=== PATIENT | female | born 1995 | race Caucasian/White ===

== ENCOUNTER 2019-01-08 18:36 | Emergency (ER) | payer MEDICARE ==
[~2019-01-08] VITALS: Ht 162.6 cm; Wt 61.2 kg
--- OUTSIDE RECORDS SUMMARY | 2019-01-08 18:39 | XMS REPORT | Clinical Summary ---
Author Author [facility] Organization [facility] Address Unknown Phone Unavailable Care Team Providers Care Insurance Collector Name Role Phone Asked, No Pcp PCP Unavailable Allergies No Known Allergies Medications End Date Status Medication Sig Dispensed Refills Start Date 10/21/2018 amoxicillin-pot Take 1 tablet 14 tablet 0 clavulanate (AUGMENTIN) by mouth 2 8 875-125 mg per tablet (two) times a day for 7 days. 10/21/2018 cetirizine (ZyrTEC) 10 MG Take 1 tablet 7 tablet 0 tablet (10 mg total) 8 by mouth daily for 7 days. Active Problems Not on file Encounters Care Team Description Date Type Specialty Marco Elena MD Upper respiratory tract infection, unspecified type (Primary Dx); Nasal congestion 10/14/2018 Emergency Emergency Medicine after 01/07/2018 Social History Date Tobacco Use Types Packs/Day Years Used Never Smoker Smokeless Tobacco: Never Used Alcohol Use Drinks/Week oz/Week Comments No Alcohol Habits Answer Date Recorded How often do you have a drink containing alcohol? Never 10/14/2018 How many drinks containing alcohol do you have on Not asked a typical day when you are drinking? How often do you have six or more drinks on one Not asked occasion? Sex Assigned at Date Recorded Not on file Industry Job Start Date Occupation Not on file Not on file Not on file Travel End Travel History Travel Start No recent travel history available. Last Filed Vital Signs Time Taken Vital Sign Reading 10/14/2018 2:14 PM [employer] Blood Pressure 122/75 10/14/2018 2:14 PM [employer] Pulse 94 10/14/2018 2:14 PM [employer] Temperature 36.8 C (98.3 F) 10/14/2018 2:14 PM [employer] Respiratory Rate 18 10/14/2018 2:14 PM [employer] Oxygen Saturation 100% - Inhaled Oxygen - Concentration 10/14/2018 12:08 PM [employer] Weight 55 kg (121 lb 5 oz) 10/14/2018 12:08 PM [employer] Height 162.6 cm (5' 4") 10/14/2018 12:08 PM [employer] Body Mass Index 20.82 Plan of Treatment Health Maintenance Due Date Last Done Comments CHLAMYDIA SCREENING 2012 CERVICAL CANCER SCREENING 2017 INFLUENZA VACCINE 06/18/2018 Procedures Comments Procedure Name Priority Date/Time Associated Diagnosis URINALYSIS SCREEN AND STAT 10/14/2018 MICROSCOPY, WITH REFLEX 1:34 PM [employer] TO CULTURE URINE CULTURE STAT 10/14/2018 1:34 PM [employer] GRAM STAIN STAT 10/14/2018 1:34 PM [employer] ECG 12-LEAD STAT 10/14/2018 1:28 PM [employer] RESPIRATORY PATHOGEN STAT 10/14/2018 PANEL 1:08 PM [employer] INFLUENZA ANTIGEN Routine 10/14/2018 1:08 PM [employer] XR CHEST 2 VW STAT 10/14/2018 1:05 PM [employer] after 01/07/2018 Results * Urinalysis screen and microscopy, with reflex to culture (10/14/2018 1:34 PM [employer]) Specimen site Clean catch [facility] Color, UA Straw [facility] Appearance, UA Clear [facility] Specific gravity, UA 1.005 1.001 - 1.035 [facility] pH, UA 7.0 5.0 - 8.5 [facility] Protein, UA Negative Negative [facility] Glucose, UA Negative Negative [facility] Ketones, UA Negative Negative [facility] Bilirubin, UA Negative Negative [facility] Blood, UA Negative Negative [facility] Nitrite, UA Negative Negative [facility] Urobilinogen, UA Negative <2.0 [facility] Leukocyte esterase, UA Trace (A) Negative [facility] Epithelial cells, UA Few /HPF [facility] WBC, UA 2 0 - 5 /HPF [facility] RBC, UA 1 0 - 5 /HPF [facility] Bacteria, UA Trace None seen [facility] Yeast, UA None seen [facility] Yeast with pseudohyphae, None seen [facility] Specimen Urine Performing Organization Address City/[facility]/Zipcode Phone Number [facility] DEPARTMENT OF [address] [place] [address] PATHOLOGY AND GENOMIC MEDICINE [address] * Gram stain (10/14/2018 1:34 PM [employer]) Gram stain result No WBC's [facility] Gram positive rods [facility] Comment: Specimen Information Specimen Source: Urine Specimen Site: Clean catch Specimen Urine Performing Organization Address [facility] Phone Number [facility] [place] [address] PATHOLOGY AND GENOMIC MEDICINE [address] * Urine culture (10/14/2018 1:34 PM [employer]) Urine culture isolate No growth after 24 hours [facility] Comment: HOSPITAL Specimen Information Specimen Source: Urine Specimen Site: Clean catch Specimen Urine Performing Organization Address City/[facility] Phone Number [facility] [place] [address] PATHOLOGY AND GENOMIC MEDICINE [address] * ECG 12 lead (10/14/2018 1:28 PM [employer]) Ventricular rate 105 [facility] Atrial rate 105 [facility] GA interval 152 [facility] QRSD interval 80 [facility] QT interval 326 [facility] QTC interval 430 [facility] P axis 1 40 [facility] QRS axis 1 72 [facility] T wave axis 58 [facility] EKG impression Sinus tachycardia-Otherwise [facility] M[facility] normal ECG-No previous ECGs available- Narrative Performed At Performing Organization Address City/[facility] Phone Number [address] [place] [address] * Respiratory pathogen panel (10/14/2018 1:08 PM [employer]) Respiratory pathogen Positive for Respiratory [facility] panel Syncytial Virus [facility] Negative for all other pathogens tested: Negative for Adenovirus Negative for Coronavirus HKU1 Negative for Coronavirus NL63 Negative for Coronavirus 229E Negative for Coronavirus OC43 Negative for Human Metapneumovirus Negative for Rhinovirus/Enterovirus Negative for Influenza A Negative for Influenza A/H1 Negative for Influenza A/H3 Negative for Influenza A/H1-2009 Negative for Influenza B Negative for Parainfluenza Virus 1 Negative for Parainfluenza Virus 2 Negative for Parainfluenza Virus 3 Negative for Parainfluenza Virus 4 Negative for Bordetella pertussis Negative for Chlamydophila pneumoniae Negative for Mycoplasma pneumoniae This real-time PCR assay detects the presence of nucleic acids (RNA or DNA) for the respiratory pathogens listed. A result of "Not-detected" does not exclude the possibility of the presence of one or more pathogens at concentrations less than the detectable limits of the assa (A) Comment: Specimen Information Specimen Source: Nasopharyngeal Specimen Site: SWAB Specimen Nasopharyngeal Performing Organization Address City/[facility]/Zipcode Phone Number [facility] DEPARTMENT OF [address] [place] [address] PATHOLOGY AND GENOMIC MEDICINE [place] [id number] * Influenza antigen (10/14/2018 1:08 PM [employer]) Influenza antigen Negative for Influenza A/B [facility] Comment: Specimen Information Specimen Source: Nares Specimen Site: Left Specimen Nares - Left Performing Organization Address City/State/Zipcode Phone Number [facility] DEPARTMENT [address] [place] [address] PATHOLOGY AND GENOMIC MEDICINE [place] [id number] [facility] [address] * XR Chest 2 Vw (10/14/2018 1:05 PM [employer]) Narrative Performed At EXAMINATION:XR CHEST 2 VW [facility] CLINICAL HISTORY:fever cough COMPARISON:None. IMPRESSION: Frontal and lateral views reveal a normal cardiomediastinal silhouette. Lungs are clear. Pleural margins are sharp. The remainder of the examination is unremarkable. [facility]-[id number] Procedure Note Hm Interface, Radiology Results Incoming - 10/14/2018 1:10 PM [employer] EXAMINATION: XR CHEST 2 VW CLINICAL HISTORY: fever cough COMPARISON: None. IMPRESSION: Frontal and lateral views reveal a normal cardiomediastinal silhouette. Lungs are clear. Pleural margins are sharp. The remainder of the examination is unremarkable. [facility]-[id number] Performing Organization Address City/State/Zipcode Phone Number [facility] [address] [place] [address] after 01/07/2018 Advance Directives Patient has advance care planning documents on file. For more information, chaitanya kennedy contact: [facility] [address] [place] [address]
--- OUTSIDE RECORDS SUMMARY | 2019-01-08 18:39 | XMS REPORT ---
Author Author [facility] Address Unknown Phone Unavailable Care Team Providers Care Spring Tester Name Role Phone Unavailable Unavailable Payers Payer Name Policy Type Policy Number Effective Date Expiration Date Problems This patient has no known problems. Allergies, Adverse Reactions, Alerts Allergy Name Allergy Type Status Severity Reaction(s) Onset Date Inactive Date Treating Clinician Comments No Known Allergies DA Active U 2018-01-19 00:00:00 Medications This patient has no known medications. Results Test Description Test Time Test Comments Text Results Atomic Results Result Comments URINALYSIS COMPLETE 2019-01-08 00:42:00 UA COLOR (test code=COLU) YELLOW YELLOW UA APPEARANCE (test code=APPU) TURBID CLEAR UA GLUCOSE DIPSTICK (test code=DGLUU) NEGATIVE mg/dL NEGATIVE UA BILIRUBIN DIPSTICK (test code=BILU) NEGATIVE NEGATIVE UA KETONE DIPSTICK (test code=KETU) NEGATIVE mg/dL NEGATIVE UA SPECIFIC GRAVITY (test code=SGU) 1.020 1.001-1.035 UA BLOOD DIPSTICK (test code=ARTHUR) 1+ (Small) NEGATIVE UA PH DIPSTICK (test code=TRIPP) 7.5 5.0-8.0 UA PROTEIN DIPSTICK (test code=PROU) TRACE (15) mg/dL Neg-15 UA UROBILINIOGEN DIPSTICK (test code=URO) 2.0 (1+) mg/dL 0.0-0.2 UA NITRITE DIPSTICK (test code=SHAMEKA) NEGATIVE NEGATIVE UA LEUKOCYTE ESTERASE W REFLEX (test code=LEUUR) TRACE NEGATIVE UA WBC (test code=WBCU) 6-10 #/HPF 0-5 UA RBC (test code=RBCU) 0-2 #/HPF 0-5 UA EPITHELIAL CELLS (test code=EPIU) FEW per HPF FEW UA BACTERIA (test code=BACU) FEW #/HPF NONE UA MUCUS (test code=MUCU) FEW #/LPF FEW UA AMORPHOUS SEDIMENT (test code=AMORU) MODERATE #/LPF NONE Urine Source? CatheterURINALYSIS [id number] 00:41:00* Test Item Value Reference Range Comments UA COLOR (test code=COLU) YELLOW UA APPEARANCE (test code=APPU) CLEAR UA BILIRUBIN DIPSTICK (test code=BILU) NEGATIVE UA SPECIFIC GRAVITY (test code=SGU) 1.001-1.035 UA PH DIPSTICK (test code=TRIPP) 5.0-8.0 UA UROBILINIOGEN DIPSTICK (test code=URO) mg/dL 0.0-0.2 UA NITRITE DIPSTICK (test code=SHAMEKA) NEGATIVE UA LEUKOCYTE ESTERASE W REFLEX (test code=LEUUR) NEGATIVE UA WBC (test code=WBCU) 6-10 #/HPF 0-5 UA RBC (test code=RBCU) 0-2 #/HPF 0-5 UA EPITHELIAL CELLS (test code=EPIU) FEW per HPF FEW UA BACTERIA (test code=BACU) FEW #/HPF NONE UA MUCUS (test code=MUCU) FEW #/LPF FEW UA AMORPHOUS SEDIMENT (test code=AMORU) MODERATE #/LPF NONE Urine Source? Catheter- DUP AB/PEL/SC [id number] 23:43:00 Name: KISHA GEE [facility] : 1995 Age/S: 23 / F [address] [facility] Unit #: [id number] Loc: [place], [place] [address] Phys: Chago Ceballos DOOR MANAGER Acct: [id number] Dis Date: Status: REG ER PHONE #: [phone] Exam Date: 01/07/2019 2310 FAX #: [phone] Reason: PELVIC PAIN EXAMS: CPT CODE: [id number] DUP AB/PEL/SC COMP 63091 EXAM: - US PREG 1ST TRIMTR, - US PREG UT TRANSVAGINAL, - DUP AB/PEL/SC COMP HISTORY: Vaginal bleeding. Pain. COMPARISON: None TECHNIQUE: Transabdominal and endovaginal scans were performed. Spectral Doppler and color Doppler sonographic analysis of the adnexa was performed. FINDINGS: The uterus is normal size, measuring 8.2 x 4.1 x 5.3cm (l ength x AP x transverse dimensions). There is a small single early intraut erine gestational sac. Yolk sac or pole are not identified. There is no hemorrhage. The right ovary measures 1.6 x 1.6 x 2cm. The left ovary measures 2.7 x 2.5 x 2.2 cm. Bilateral ovarian blood flow is docum ented by pulse wave Doppler. There is no adnexal mass or free fluid in the cul-de-sac. IMPRESSION: There is an early intra uterine gestational sac. A pole is not identified yet. at 5792 Reported and signed by: Stephen England MD CC: Jaqui Mustafa CNM; Prince Trevizo MD; Chago Ceballos NP Technologist: LÁZARO HERNANDEZ RDMS Trnakb Date/Time: 01/07/2019 (7336) [email or web address] Orig Print D/T: S: 01/07/2019 (2231) Probe: PAGE 1 Signed Report - US PREG UT [id number] 23:43:00 Name: KISHA GEE [facility] : 1995 Age/S: 23 / F [address] [facility] Unit #: [id number] Loc: [place] [address] Phys: Chago Ceballos NP Acct: [id number] Dis Date: Status: REG ER PHONE #: [phone] Exam Date: 01/07/2019 2310 FAX #: [phone] Reason: PELVIC PAIN EXAMS: CPT CODE: [id number] US PREG UT TRANSVAGINAL [id number] EXAM: - US PREG 1ST TRIMTR, - US PREG UT TRANSVAGINAL, - DUP AB/PEL/SC COMP HISTORY: Vaginal bleeding. Pain. COMPARISON: None TECHNIQUE: Transabdominal and endovaginal scans were performed. Spectral Doppler and color Doppler sonographic analysis of the adnexa was performed. FINDINGS: The uterus is normal size, measuring 8.2 x 4.1 x 5.3cm (l ength x AP x transverse dimensions). There is a small single early intraut erine gestational sac. Yolk sac or pole are not identified. There is no hemorrhage. The right ovary measures 1.6 x 1.6 x 2cm. The left ovary measures 2.7 x 2.5 x 2.2 cm. Bilateral ovarian blood flow is docum ented by pulse wave Doppler. There is no adnexal mass or free fluid in the cul-de-sac. IMPRESSION: There is an early intra uterine gestational sac. A pole is not identified yet. at 2343 Reported and signed by: Stephen England MD CC: Jaqui Mustafa CNM; Prince Trevizo MD; Chago Ceballos NP Technologist: LÁZARO HERNANDEZ RDMS Trnakb Date/Time: 01/07/2019 (6293) [email or web address] Orig Print D/T: S: 01/07/2019 (9154) Probe: [id number] PAGE 1 Signed Report - US PREG 1ST [id number] 23:43:00 Name: KISHA GEE [facility] : 1995 Age/S: 23 / F [address] [facility] Unit #: [id number] Loc: [place] [address] Phys: Chago Ceballso DOOR MANAGER Acct: [id number] Dis Date: Status: REG ER PHONE #: [phone] Exam Date: 01/07/2019 2310 FAX #: [phone] Reason: VAGINAL BLEEDING/PELVIC PAIN EXAMS: CPT CODE: [id number] US PREG 1ST TRIMTR 52579 EXAM: - US PREG 1ST TRIMTR, - US PREG UT TRANSVAGINAL, - DUP AB/PEL/SC COMP HISTORY: Vaginal bleeding. Pain. COMPARISON: None TECHNIQUE: Transabdominal and endovaginal scans were performed. Spectral Doppler and color Doppler sonographic analysis of the adnexa was performed. FINDINGS: The uterus is normal size, measuring 8.2 x 4.1 x 5.3cm (length x AP x transverse dimensions). There is a small single early intrauterine gestational sac. Yolk sac or pole are not identified. There is no hemorrhage. The right ovary measures 1.6 x 1.6 x 2cm. The left ovary measures 2.7 x 2.5 x 2.2 cm. Bilateral ovarian blood flow is documented by pulse wave Doppler. There is no adnexal mass or free fluid in the cul-de-sac. IMPRESSION: There is an early intrauterine gestational sac. A pole is not identified yet. at 2017 Reported and signed by: Stephen [place] MD CC: Jaqui Mustafa CNM; Prince Trevizo MD; Chago Ceballos NP Technologist: LÁZARO HERNANDEZ RDMS Trnscb Date/Time: 01/07/2019 (2797) [email or web address] Orig Print D/T: S: 01/07/2019 (8279) Probe: PAGE 1 Signed Report BASIC METABOLIC PANEL 2019-01-07 23:08:00* Test Item Value Reference Range Comments SODIUM (test code=NA) 142 mmol/L 136-145 POTASSIUM (test code=K) 3.9 mmol/L 3.5-5.1 CHLORIDE (test code=CL) 107.0 mmol/L 98-107 CARBON DIOXIDE (test code=CO2) 26.0 mmol/L 21-32 ANION GAP (test code=GAP) 12.9 10-20 GLUCOSE (test code=GLU) 95 mg/dL 74-106 BLOOD UREA NITROGEN (test code=BUN) 13 mg/dL 7-18 GLOMERULAR FILTRATION RATE (test code=GFR) > 60 mL/min >=60 Estimated GFR by using Modified MDRD formula.Chronic kidney disease is defined as either kidney damageor GFR <60 mL/min/1.73 m2 for >3 months. CREATININE (test code=CREAT) 0.70 mg/dL 0.55-1.02 Note change in reference range due to change in reagent. BUN/CREATININE RATIO (test code=BUN/CREA) 17.5 10-20 CALCIUM (test code=CA) 8.8 mg/dL 8.5-10.1 HCG SERUM [id number] 23:08:00* Test Item Value Reference Range Comments HCG SERUM BETA (test code=HCG) 1275.0 mIU/mL 0-3 Interfering substances present in the serum of somepatients may cause a false-positive result in this assay.Questionable elevations in serum hCG should be confirmedwith a urine hCG. Suspected Trophoblastic Neoplasms shouldnot be diagnosed based on serun hCG/beta hCG alone. Theymust be confirmed by clinical history and tissue diagnosis.INTERPRETATION:B-HCG LEVELS <5 SHOULD BE CONSIDERED "NEGATIVE." *WHEN BODERLINE RESULTS ARE ENCOUNTERED,PATIENT SAMPLESSHOULD BE REDRAWN 48 HOURS. 0-1 WEEKS AFTER CONCEPTION 5-50 MIU/ML1-2 WEEKS AFTER CONCEPTION 50-500 MIU/ML2-3 WEEKS AFTER CONCEPTION 100 -5,000 MIU/ML3-4 WEEKS AFTER CONCEPTION 500-10,000 MIU/ML4-5 WEEKS AFTER CONCEPTION 1000 -50,000 MIU/ML5-6 WEEKS AFTER CONCEPTION 10,000-100,000 MIU/ML6-8 WEEKS AFTER CONCEPTION 15,000- 200,000 MIU/ML2-3 MONTHS AFTER CONCEPTION 10,000-100,000 MIU/ML BASIC METABOLIC [id number] 22:47:00* Test Item Value Reference Range Comments SODIUM (test code=NA) 142 mmol/L 136-145 POTASSIUM (test code=K) 3.9 mmol/L 3.5-5.1 CHLORIDE (test code=CL) 107.0 mmol/L 98-107 CARBON DIOXIDE (test code=CO2) mmol/L 21-32 ANION GAP (test code=GAP) 10-20 GLUCOSE (test code=GLU) mg/dL 74-106 BLOOD UREA NITROGEN (test code=BUN) mg/dL 7-18 GLOMERULAR FILTRATION RATE (test code=GFR) mL/min >=60 CREATININE (test code=CREAT) mg/dL 0.55-1.02 BUN/CREATININE RATIO (test code=BUN/CREA) 10-20 CALCIUM (test code=CA) mg/dL 8.5-10.1 HCG SERUM [id number] 22:47:00* Test Item Value Reference Range Comments HCG SERUM BETA (test code=HCG) mIU/mL 0-3 CBC W/O [id number] 22:32:00* Test Item Value Reference Range Comments WHITE BLOOD CELL (test code=WBC) 10.2 K/mm3 4.5-12.5 RED BLOOD CELL (test code=RBC) 4.77 mill/mm3 3.7-5.2 HEMOGLOBIN (test code=HGB) 11.8 gram/dL 11.5-15.5 HEMATOCRIT (test code=HCT) 39.1 % 36.0-46.0 MEAN CELL VOLUME (test code=MCV) 82.0 fL 80-98 MEAN CELL HGB (test code=MCH) 24.7 picogram 27.0-33.0 MEAN CELL HGB CONCETRATION (test code=MCHC) 30.2 gram/dL 33.0-36.0 RED CELL DISTRIBUTION WIDTH (test code=RDW) 15.9 % 11.6-16.2 PLATELET COUNT (test code=PLT) 291 K/mm3 150-450 MEAN PLATELET VOLUME (test code=MPV) 9.6 fL 6.7-11.0 CBC W/O [id number] 22:28:00* Test Item Value Reference Range Comments WHITE BLOOD CELL (test code=WBC) K/mm3 4.5-12.5 RED BLOOD CELL (test code=RBC) mill/mm3 3.7-5.2 HEMOGLOBIN (test code=HGB) 11.8 gram/dL 11.5-15.5 HEMATOCRIT (test code=HCT) 39.1 % 36.0-46.0 MEAN CELL VOLUME (test code=MCV) fL 80-98 MEAN CELL HGB (test code=MCH) picogram 27.0-33.0 MEAN CELL HGB CONCETRATION (test code=MCHC) gram/dL 33.0-36.0 RED CELL DISTRIBUTION WIDTH (test code=RDW) % 11.6-16.2 PLATELET COUNT (test code=PLT) K/mm3 150-450 MEAN PLATELET VOLUME (test code=MPV) fL 6.7-11.0
== END 2019-01-08 19:20 | disposition left against medical advice (07) ==
LOC: FSED 18:36
DX: O20.9 Hemorrhage in early pregnancy, unspecified (principal)
CPT/HCPCS: 99282